=== PATIENT | female | born 1970 | race African-American/Black ===

== ENCOUNTER → 2017-08-30 | Outpatient (CLI) | payer OTHER ==
[~2017-08-30] MED LIST: ALPR0.5T10 PO; ASPI-515 PO; CLON0.5T20 PO; FAMO-79 PO
== END ==
LOC: CFH 11:44
PROVIDERS: ATTEND Family Medicine
DX: Z12.31 Encounter for screening mammogram for malignant neoplasm of breast (principal)
CPT/HCPCS: 77067